=== PATIENT | male | born 1940 | race Caucasian/White ===

== ENCOUNTER → 2018-07-13 | Outpatient (CLI) | payer MEDICARE, BC ==
[~2018-07-13] MED LIST: ASPIRIN 81M81 MG/TA2 PO; COREG 3.123.125 MG/T PO; GLUCOPHAGE1000 MG PO; LIPITOR 40MG TA40 MG PO; MEGARED PO; PLAVIX 75MG TAB75 MG PO; PRINIVIL2.5 MG PO; TRENTAL 400MG400 MG PO; TRICOR 48MG48 MG PO
== END ==
LOC: COL.RAD 14:40
DX: K80.11 Calculus of gallbladder with chronic cholecystitis with obstruction (principal); K83.9 Disease of biliary tract, unspecified; K86.89 Other specified diseases of pancreas; I71.4 Abdominal aortic aneurysm, without rupture; E27.8 Other specified disorders of adrenal gland; N28.1 Cyst of kidney, acquired; I70.1 Atherosclerosis of renal artery; Z95.820 Peripheral vascular angioplasty status with implants and grafts; Z96.89 Presence of other specified functional implants
CPT/HCPCS: Q9967

== ENCOUNTER 2018-09-04 11:19 | Day surgery (SDC) | payer MEDICARE, BC ==
[~2018-09-04] VITALS: Ht 175.4 cm; Wt 83.3 kg
[2018-09-04] VITALS (310 sets, daily range): BP systolic 146–177; BP diastolic 69–94; PULSE 65–91; TEMP 97.9–98.8; O2SAT 91–100
[2018-09-04 11:47] LABS: HEMATOCRIT 37.7 % (42.0-52.0); HEMOGLOBIN 12.4 g/dl (13.5-18.0); MEAN CELL VOLUME 94 fl (80.0-100.0); MEAN CORPUSCULAR HEMOGLOBIN 31 pg (27.0-31.0); MEAN CORPUSCULAR HGB CONC 33 g/dl (33.0-37.0); MEAN PLATELET VOLUME 10.8 fl (7.4-10.4); PLATELET COUNT 145 K/mm3 (130-400); RED BLOOD COUNT 4.01 M/mm3 (4.20-5.60); REDCELL DISTRIBUTION WIDTH-CV 13.8 % (11.5-14.5)
[2018-09-04] MEDS ORDERED: TRENTAL 400MG400 MG PO ×2 (11:50→18:36)
[2018-09-04 11:52] LABS: PROTHROMBIN TIME 11.2 SECONDS (9.7-12.8)
[2018-09-04] MEDS ORDERED: NATURAL IRON65 MG PO ×2 (11:55→18:46)
[2018-09-04 12:02] LABS: CREATININE, serum 0.92 (0.66-1.25); POTASSIUM 4.3 mmol/L (3.4-5.0)
--- NOTE | 2018-09-04 14:02 | NUR ---
ALL MEDICATIONS GIVEN VORB WITH MD. SEE MERGE FOR ALL MEDICATION ADMIN TIMES. SEE MERGE FOR ALL RASS ASSESSMENTS DURING AND POST PROCEDURE.
--- NOTE | 2018-09-04 17:15 | NUR ---
Refer to previous cardiac cath documentation for vital signs at this time. Right hand is cool, normal in color, and capillary refill <3 seconds.
--- NOTE | 2018-09-04 17:30 | NUR ---
Refer to previous cardiac cath documentation for vital signs at this time. Right hand is cool, normal in color, with capillary refill <3 seconds.
--- NOTE | 2018-09-04 17:40 | NUR ---
Called Dr Rhodes regarding note left on h/p by his office nurse stating he needed to call pt's surgeon at after procedure for update. Pt is scheduled for OR 09/08/18. Dr Barry's number provided to Dr Rhodes.
--- NOTE | 2018-09-04 17:44 | NUR ---
Right radial pulse unable to palpate due to TR band in place post heart cath. Hand cool to touch, normal in color, capillary refill <3 seconds.
--- NOTE | 2018-09-04 17:45 | NUR ---
Refer to previous cardiac cath documentation for vital signs at this time. Right hand is cool, normal in color, and capillary refill <3 seconds.
--- NOTE | 2018-09-04 18:01 | NUR ---
Refer to previous cardiac cath check documentation for vital signs related to this time. Right hand is cool, normal in color, and capillary refill <3 seconds.
--- NOTE | 2018-09-04 18:26 | NUR ---
Scant drainage noted to gauze dressing on right femoral site. Drainage outlined with tyrellie at this time.
--- NOTE | 2018-09-04 18:28 | NUR ---
Refer to previous documentation on cardiac cath checks for vital signs at this time. Right hand is cool, normal in color, and capillary refill <3 seconds.
[2018-09-04] MEDS ORDERED: PRINIVIL2.5 MG PO (18:32)
[2018-09-04] MEDS ORDERED: COREG 3.123.125 MG/T PO (18:33)
[2018-09-04] MEDS ORDERED: GLUCOPHAGE1000 MG PO (18:34)
[2018-09-04] MEDS ORDERED: LIPITOR 40MG TA40 MG PO (18:37)
[2018-09-04] MEDS ORDERED: PLAVIX 75MG TAB75 MG PO (18:39)
[2018-09-04] MEDS ORDERED: ASPIRIN 81M81 MG/TA2 PO (18:40)
[2018-09-04] MEDS ORDERED: KRILL OIL 3001 EACH PO (18:43)
--- NOTE | 2018-09-04 18:52 | NUR ---
Scant drainage on right femoral dressing has increased since the last check. New area of bleeding outlined on dressing and 10 lb sandbag applied at this time.
--- NOTE | 2018-09-04 18:54 | NUR ---
Refer to previous cardiac cath check documentation for vital signs at this time. Right hand is cool, normal in color, and capillary refill <3 seconds.
--- NOTE | 2018-09-04 19:28 | NUR ---
TR Band deflated by 3 ml with no complications.
--- NOTE | 2018-09-04 19:31 | NUR ---
Bedside shift report given to LINDSAY Knight. Patient awake, alert, and remains supine from heart catheterization procedure. Patient has no complaints or concerns at this time. Patient pulled up in bed, but remains supine at this time. Patient's and daughter are at bedside during this time. Both catheter access sites (R femoral, R radial) assessed. Vital signs stable. Bed placed in reverse trendelenburg, lowered to the lowest position, side rails up x3, call light placed within reached.
--- NOTE | 2018-09-04 20:00 | NUR ---
Shift assessment complete at this time. Plan of care reviewed at bedside with patient et family. Additional time taken to address any other needs or concerns. Vitals stable at this time. Denies pain or any other discomfort. R radial cath site with TR band in place; clean, dry, et intact with no drainage or hematoma. Pulses present and strong bilaterally. R femoral cath site with oozing drainage. Sandbag in place. No hematoma present. Will continue to monitor.
--- NOTE | 2018-09-04 22:45 | NUR ---
R radial site noted to have increased firmness superiorly to puncture site. TR band reinflated with 5 ml of air. Will notify physician.
--- NOTE | 2018-09-04 23:45 | NUR ---
R femoral cath site with no new drainge; soft with no hematoma. Dressing intact. R radial site with no expansion to hematoma. Pulse present and strong bilaterally. TR band remains in place per order.
[2018-09-05] VITALS (174 sets, daily range): BP systolic 145–162; BP diastolic 84–93; PULSE 78–85; TEMP 97.9–98.1; O2SAT 95–100
--- NOTE | 2018-09-05 | NUR ---
Pt resting comfortably in bed. Denies pain or any other discomfort. Vitals stable at this time. R femoral cath site with no new drainage, soft with no hematoma. Sandbag still in place over femoral site. R radial cath site with TR band in place, no drainage or expansion of hematoma. Pulses present and strong bilaterally. Call light in place. Bed alarm on. Bed in low position with three rails raised. Will continue to monitor.
--- NOTE | 2018-09-05 04:05 | NUR ---
Pt sleeping comfortably in bed. Denies pain or any other discomfort. Vitals stable at this time. R radial site with no expansion of hematoma. Pulses present bilaterally. TR band in place per order. R femoral site with no new drainage; no hematoma present. Call light within reach, bed in low and locked position. Will continue to monitor.
--- NOTE | 2018-09-05 07:28 | NUR ---
Bedside report given to LINDSAY Green.
--- NOTE | 2018-09-05 07:30 | NUR ---
Report received from LINDSAY Knight.
--- NOTE | 2018-09-05 08:00 | NUR ---
Assessment completed. Pt awake, in bed talking with at bedside. Denies any pain. VSS. Right wrist with TR band inflated with air. TR band deflated 3cc of air. Right radial pulse strong. Bruising noted above incision site, area soft. Right femoral dressing with old drainage, area soft. Dressing changed with gauze and tegaderm. Discussed plan of care r/t possible discharge today. Pt verbalized understanding. Call light in reach.
[2018-09-05] MEDS ORDERED: COREG 6.256.25 MG/TA PO (08:08)
[2018-09-05] MEDS ORDERED: PRINIVIL5 MG PO (08:08)
--- NOTE | 2018-09-05 08:30 | NUR ---
All air deflated from TR band on right wrist. Area soft, no bleeding noted from incision site. No changes with bruising above insertion site. Right femoral dressing c/d/i, area soft.
--- NOTE | 2018-09-05 10:20 | NUR ---
Discharged paperwork given to pt and pt's . Discussed discharge instructions and med list to pt adn pt's . answered all questions to their satisfaction. Left AC PIV dc'd. catheter intact.
--- NOTE | 2018-09-05 10:30 | NUR ---
Pt discharged from ICU. Pt left unit via wheelchair with nurse and to private vehicle driven by spouse.
== END 2018-09-05 10:30 | disposition home or self-care (01) ==
LOC: COL.CAR 11:19 → ICU 16:50 → COL.CAR 09-05 10:30
PROVIDERS: Internal Medicine Cardiovascular Disease
DX: I25.10 Atherosclerotic heart disease of native coronary artery without angina pectoris (principal); R94.39 Abnormal result of other cardiovascular function study; I73.9 Peripheral vascular disease, unspecified; Z79.02 Long term (current) use of antithrombotics/antiplatelets; Z79.84 Long term (current) use of oral hypoglycemic drugs; Z95.1 Presence of aortocoronary bypass graft; I12.9 Hypertensive chronic kidney disease with stage 1 through stage 4 chronic kidney disease, or unspecified chronic kidney disease; E11.22 Type 2 diabetes mellitus with diabetic chronic kidney disease; N18.3 Chronic kidney disease, stage 3 (moderate); E78.5 Hyperlipidemia, unspecified; J44.9 Chronic obstructive pulmonary disease, unspecified; Z86.718 Personal history of other venous thrombosis and embolism
CPT/HCPCS: OP; J0360; J1644; J2250; J3010; Q9967

== ENCOUNTER 2018-11-17 09:37 | Emergency (ER) | payer MEDICARE, BC ==
[~2018-11-17 09:37] MED LIST changes: +COREG 6.256.25 MG/TA PO; +KRILL OIL 3001 EACH PO; +NATURAL IRON65 MG PO; +PRINIVIL5 MG PO
[2018-11-17 09:56] VITALS: TEMP 96.1
[2018-11-17 10:43] LABS: BASO % 0.8 % (0.0-2.0); EOS # 0.1 (0.0-0.7); EOS % 1.6 % (0-4.0); GRAN # 2.9 (1.4-6.5); GRAN % 76.6 % (42.2-75.2); HEMATOCRIT 32.1 % (42.0-52.0); HEMOGLOBIN 10.7 g/dl (13.5-18.0); LYMPH # 0.6 (1.2-3.4); LYMPH % 14.7 % (20.0-51.0); MEAN CELL VOLUME 94 fl (80.0-100.0); MEAN CORPUSCULAR HEMOGLOBIN 31 pg (27.0-31.0); MEAN CORPUSCULAR HGB CONC 33 g/dl (33.0-37.0); MEAN PLATELET VOLUME 11.2 fl (7.4-10.4); MONO # 0.2 (0.1-0.6); PLATELET COUNT 139 K/mm3 (130-400); RED BLOOD COUNT 3.43 M/mm3 (4.20-5.60); REDCELL DISTRIBUTION WIDTH-CV 13.7 % (11.5-14.5)
[2018-11-17 10:48] LABS: PROTHROMBIN TIME 11.4 SECONDS (9.7-12.8)
[2018-11-17 10:54] LABS: ALBUMIN 3.2 gm/dL (3.5-5.0); BILIRUBIN,TOTAL 0.6 mg/dL (0.0-1.0); CALCIUM 8.9 mg/dL (8.4-10.2); CREATININE, serum 0.8 (0.66-1.25); MAGNESIUM 1.8 mg/dL (1.6-2.3); POTASSIUM 5.1 mmol/L (3.4-5.0)
[2018-11-17] MEDS ORDERED: LANTUS SOLOS100 U/ML SQ (12:56)
[2018-11-17 13:10] VITALS: BP 136/84; PULSE 76
== END 2018-11-17 13:10 | disposition home or self-care (01) ==
LOC: COL.ER 09:37
PROVIDERS: Emergency Medicine
DX: R73.9 Hyperglycemia, unspecified (principal); R04.0 Epistaxis; C25.9 Malignant neoplasm of pancreas, unspecified; Z79.84 Long term (current) use of oral hypoglycemic drugs; Z79.82 Long term (current) use of aspirin; Z79.02 Long term (current) use of antithrombotics/antiplatelets
CPT/HCPCS: J1815; J7030

== ENCOUNTER 2018-11-18 23:15 | Emergency (ER) | payer MEDICARE, BC ==
[~2018-11-18] VITALS: Ht 180.3 cm; Wt 73.6 kg
[~2018-11-18 23:15] MED LIST changes: +LANTUS SOLOS100 U/ML SQ
[2018-11-18 23:22] VITALS: BP 129/62; PULSE 101; TEMP 97.5
[2018-11-18 23:49] LABS: HEMOGLOBIN 10.5 g/dl (13.5-18.0)
[2018-11-18 23:50] LABS: HEMATOCRIT 32.1 % (42.0-52.0)
== END 2018-11-19 00:40 | disposition home or self-care (01) ==
LOC: COL.ER 23:15
PROVIDERS: Physician Assistant
DX: R04.0 Epistaxis (principal); E11.9 Type 2 diabetes mellitus without complications; Z79.02 Long term (current) use of antithrombotics/antiplatelets; Z79.4 Long term (current) use of insulin; Z79.82 Long term (current) use of aspirin

== ENCOUNTER 2019-01-10 22:44 | Inpatient (IN) | payer MEDICARE, BC ==
[~2019-01-10] VITALS: Ht 175.3 cm; Wt 83.0 kg
[2019-01-10 23:24] LABS: HEMOGLOBIN 10.1 g/dl (13.5-18.0); MEAN CELL VOLUME 98 fl (80.0-100.0); MEAN CORPUSCULAR HEMOGLOBIN 31 pg (27.0-31.0); MEAN CORPUSCULAR HGB CONC 32 g/dl (33.0-37.0); MEAN PLATELET VOLUME 10.8 fl (7.4-10.4); PLATELET COUNT 80 K/mm3 (130-400); RED BLOOD COUNT 3.22 M/mm3 (4.20-5.60); REDCELL DISTRIBUTION WIDTH-CV 18.3 % (11.5-14.5)
[2019-01-10 23:27] LABS: HEMATOCRIT 31.7 % (42.0-52.0)
[2019-01-10 23:34] LABS: INR 1.1 (0.8-3.0); PROTHROMBIN TIME 12.5 SECONDS (9.7-12.8)
[2019-01-10 23:36] LABS: PARTIAL THROMBOPLASTIN TIME 27.1 SECONDS (26.0-37.0)
[2019-01-10 23:37] LABS: ALBUMIN 3.7 gm/dL (3.5-5.0); BILIRUBIN,TOTAL 0.8 mg/dL (0.0-1.0); C-REACTIVE PROTEIN 2.1 mg/dL (0.0-0.9); CALCIUM 8.9 mg/dL (8.4-10.2); CREATININE, serum 0.82 (0.66-1.25); POTASSIUM 3.8 mmol/L (3.4-5.0); TOTAL PROTEIN 6.6 gm/dL (6.4-8.2)
[2019-01-11] VITALS (1256 sets, daily range): BP systolic 112–147; BP diastolic 63–78; PULSE 63–195; TEMP 97.9–99.6; O2SAT 80–100
[2019-01-11 00:04] LABS: TROPONIN-I 0.015 ng/mL (0.000-0.035)
[2019-01-11 00:27] LABS: ANISOCYTOSIS 2+; BAND 27 % (0-10); LYMPHOCYTE 7 % (20.0-51.0); NEUTROPHILS 63 % (42.0-75.2); PLATELET ESTIMATE DECREASED (NORMAL); ROULEAUX 1+
[2019-01-11 00:28] LABS: POIKILOCYTOSIS 1+
[2019-01-11] MEDS ORDERED: LEVEMIR100 U/ML SQ (00:55)
[2019-01-11] MEDS ORDERED: NOVOLIN N100 U/ML (00:56)
--- NOTE | 2019-01-11 02:01 | NUR ---
Admission assessment complete. Patient in bed, awake. at bedside. Denies pain. Temp 99.6, down from admission temp. BG 306, will obtain sliding scale insulin orders. Denies further needs at this time. Will continue to monitor.
[2019-01-11] MEDS ORDERED: NEURONTIN300 MG/CAP PO (02:35)
--- NOTE | 2019-01-11 02:39 | NUR ---
Most recent troponin 0.0178 (previous 0.015). Notified Zaida, GENERAL FREIGHT AGENT. Also notified Zaida of BG 306 and temp 99.6. Continue IVF at 150ml/hr and she will see patient soon. Updated patient and . Will continue to monitor.
--- NOTE | 2019-01-11 04:50 | NUR ---
Patient in bed, sleeping. Awakens easily. Able to provide sample for U/A. KIMBERLEE Cerda aware and specimen taken to lab. Patient denies pain. Denies further needs at this time. Will continue to monitor.
[2019-01-11 05:47] LABS: COLLECTION METHOD CLEAN CATCH
[2019-01-11 06:03] LABS: PH 5 (5-8); SQUAMOUS EPITHELIAL None Seen /hpf; URINE APPEARANCE Clear; URINE BACTERIA None Seen /hpf; URINE BILIRUBIN Negative (NEGATIVE); URINE BLOOD 2+ (NEGATIVE); URINE COLOR Yellow; URINE GLUCOSE 3+ (NEGATIVE); URINE KETONE Negative (NEGATIVE); URINE LEUKOCYTE ESTERASE Negative (NEGATIVE); URINE NITRATE Negative (NEGATIVE); URINE PROTEIN(semi-quant) Negative (NEGATIVE); URINE RBC 0-2 /hpf; URINE UROBILINOGEN Negative (NEGATIVE)
[2019-01-11 06:17] LABS: MEAN CELL VOLUME 100 fl (80.0-100.0); MEAN CORPUSCULAR HGB CONC 32 g/dl (33.0-37.0); PLATELET COUNT 73 K/mm3 (130-400); RED BLOOD COUNT 2.55 M/mm3 (4.20-5.60); REDCELL DISTRIBUTION WIDTH-CV 18.5 % (11.5-14.5)
[2019-01-11 06:18] LABS: HEMATOCRIT 25.5 % (42.0-52.0); HEMOGLOBIN 8.2 g/dl (13.5-18.0); MEAN CORPUSCULAR HEMOGLOBIN 32 pg (27.0-31.0)
[2019-01-11 06:37] LABS: ALBUMIN 2.8 gm/dL (3.5-5.0); BILIRUBIN,TOTAL 0.3 mg/dL (0.0-1.0); CALCIUM 8.1 mg/dL (8.4-10.2); CREATININE, serum 0.81 (0.66-1.25); TOTAL PROTEIN 5.2 gm/dL (6.4-8.2)
--- NOTE | 2019-01-11 06:38 | NUR ---
Cardiology consult called to Dr. Quiros.
--- NOTE | 2019-01-11 07:00 | NUR ---
BEDSIDE REPORT RECEIVED FROM LINDSAY GARCIA.
[2019-01-11 07:18] LABS: ANISOCYTOSIS 2+; LYMPHOCYTE 7 % (20.0-51.0); NEUTROPHILS 87 % (42.0-75.2); PLATELET ESTIMATE DECREASED (NORMAL)
[2019-01-11 07:19] LABS: HYPOCHROMIA 1+
[2019-01-11 07:35] LABS: TROPONIN-I 6 HR POST INITIAL 1.65 ng/mL (0.000-0.034)
--- NOTE | 2019-01-11 07:45 | NUR ---
RECEIVED REPORT FROM LINDSAY MORRIS.
--- NOTE | 2019-01-11 12:19 | NUR ---
Initial visit; Patient and his thanked Traffic Chief for looking in on [facility] and letting them know that Holy Communion is offered on the floor by [facility] and by request in the ICU.
--- NOTE | 2019-01-11 15:13 | NUR ---
BLOOD CULTURE SPECIMEN COLLECTED FROM IMPLANTED PORT IN RIGHT CHEST. PORT-A-CATH ACCESSED AND THEN DEACCESSED PER DR. BOND VERBAL ORDER. PATIENT TOLERATED WELL.
--- NOTE | 2019-01-11 15:42 | NUR ---
SW met with patient and to discuss discharge planning. Patient lives independently at home wiht his . Patient's PCP is Dr Fleming but patient is also seen by Dr Short, as he is currently getting chemo therapy. Patient reports he has not had many side effects to the chemo. Patient is independent with all ADLs. Patient does not use any DME but has access to a walker and wheelchair if needed. Patient does not use any home health services. [facility] reports that patient does have [facility] in place and they've provided a copy for the chart. SW will continue to follow. No discharge needs at this time.
--- NOTE | 2019-01-11 19:45 | NUR ---
BEDSIDE REPORT GIVEN TO LINDSAY CASTILLO AND LINDSAY KATHLEEN. PATIENT LYING IN BED WITH NO COMPLAINTS. PLAN OF CARE REVIEWED. CARE TURNED OVER AT THIS TIME.
[2019-01-12] VITALS (714 sets, daily range): BP systolic 115–166; BP diastolic 52–85; PULSE 63–78; TEMP 97.8–98.7; O2SAT 77–100
[2019-01-12 05:23] LABS: BASO % 0.4 % (0.0-2.0); EOS # 0.1 (0.0-0.7); EOS % 2.6 % (0-4.0); GRAN # 3.8 (1.4-6.5); GRAN % 76.2 % (42.2-75.2); LYMPH # 0.6 (1.2-3.4); LYMPH % 11.6 % (20.0-51.0); MEAN CELL VOLUME 102 fl (80.0-100.0); MEAN CORPUSCULAR HGB CONC 31 g/dl (33.0-37.0); MEAN PLATELET VOLUME 10.9 fl (7.4-10.4); MONO # 0.4 (0.1-0.6); MONO % 8.8 % (1.7-9.3); PLATELET COUNT 61 K/mm3 (130-400); REDCELL DISTRIBUTION WIDTH-CV 18.5 % (11.5-14.5)
[2019-01-12 05:28] LABS: HEMATOCRIT 26.4 % (42.0-52.0); HEMOGLOBIN 8.2 g/dl (13.5-18.0); MEAN CORPUSCULAR HEMOGLOBIN 32 pg (27.0-31.0)
[2019-01-12 05:39] LABS: ALBUMIN 2.9 gm/dL (3.5-5.0); BILIRUBIN,TOTAL 0.4 mg/dL (0.0-1.0); CALCIUM 8.2 mg/dL (8.4-10.2); CREATININE, serum 0.74 (0.66-1.25); POTASSIUM 4.2 mmol/L (3.4-5.0); TOTAL PROTEIN 5.4 gm/dL (6.4-8.2)
[2019-01-12 05:54] LABS: TROPONIN-I 1.42 ng/mL (0.000-0.035)
--- NOTE | 2019-01-12 05:55 | NUR ---
TROPONIN TRENDING DOWN, PHYSICIAN NOT NOTIFIED OF MORNING RESULT.
--- NOTE | 2019-01-12 07:56 | NUR ---
GAVE BEDSIDE REPORT TO LINDSAY KERNS.
--- NOTE | 2019-01-12 19:05 | NUR ---
RECEIVED REPORT FROM LINDSAY KERNS.
[2019-01-13] VITALS (155 sets, daily range): BP systolic 153–175; BP diastolic 78–88; PULSE 75–81; TEMP 97.6–98.9; O2SAT 97–99
--- NOTE | 2019-01-13 02:00 | NUR ---
Patient wandering in hallway looking for bathroom. Patient was redirected to room and assisted to the toilet and then back to bed. Patient states he felt disoriented upon awakening. Vital signs continue to be within normal limits. Denies any pain or discomfort.
[2019-01-13 05:20] LABS: BASO % 0.3 % (0.0-2.0); EOS # 0.2 (0.0-0.7); EOS % 2.4 % (0-4.0); GRAN # 5.1 (1.4-6.5); GRAN % 80.2 % (42.2-75.2); HEMATOCRIT 28.7 % (42.0-52.0); HEMOGLOBIN 8.8 g/dl (13.5-18.0); LYMPH # 0.7 (1.2-3.4); LYMPH % 10.5 % (20.0-51.0); MEAN CELL VOLUME 101 fl (80.0-100.0); MEAN CORPUSCULAR HEMOGLOBIN 31 pg (27.0-31.0); MEAN CORPUSCULAR HGB CONC 31 g/dl (33.0-37.0); MEAN PLATELET VOLUME 11.8 fl (7.4-10.4); MONO # 0.4 (0.1-0.6); PLATELET COUNT 77 K/mm3 (130-400); RED BLOOD COUNT 2.83 M/mm3 (4.20-5.60); REDCELL DISTRIBUTION WIDTH-CV 17.8 % (11.5-14.5)
[2019-01-13 05:30] LABS: ALBUMIN 3.1 gm/dL (3.5-5.0); BILIRUBIN,TOTAL 0.4 mg/dL (0.0-1.0); CALCIUM 8.4 mg/dL (8.4-10.2); CREATININE, serum 0.72 (0.66-1.25); MAGNESIUM 1.9 mg/dL (1.6-2.3); POTASSIUM 3.7 mmol/L (3.4-5.0); TOTAL PROTEIN 5.8 gm/dL (6.4-8.2)
--- NOTE | 2019-01-13 07:59 | NUR ---
GAVE REPORT TO LINDSAY KERNS.
[2019-01-13] MEDS ORDERED: OMNICEF 300MG300 MG PO (11:41)
--- NOTE | 2019-01-13 13:01 | NUR ---
Patient will discharge home today 01/13 with his . No discharge needs.
--- NOTE | 2019-01-13 13:32 | NUR ---
Discharge instructions discussed with pt and . All questions answered. Iv and tele dc'd. Pt's has all paperwork. Pt wheeled out to private car for discharge.
== END 2019-01-13 13:30 | disposition home or self-care (01) | DRG 872 ==
LOC: COL.ER 22:44 → ICU 01-11 00:38
PROVIDERS: Emergency Medicine; Hospitalist; Nurse Practitioner Family; ADMIT Student in an Organized Health Care Education/Training Program
DX: A41.9 Sepsis, unspecified organism (principal); C25.9 Malignant neoplasm of pancreas, unspecified; C78.7 Secondary malignant neoplasm of liver and intrahepatic bile duct; E87.2 Acidosis; C79.72 Secondary malignant neoplasm of left adrenal gland; C79.71 Secondary malignant neoplasm of right adrenal gland; I24.8 Other forms of acute ischemic heart disease; I10 Essential (primary) hypertension; E78.5 Hyperlipidemia, unspecified; E83.42 Hypomagnesemia; I25.10 Atherosclerotic heart disease of native coronary artery without angina pectoris; D69.6 Thrombocytopenia, unspecified; R74.0 Nonspecific elevation of levels of transaminase and lactic acid dehydrogenase [LDH]; I71.4 Abdominal aortic aneurysm, without rupture; E11.51 Type 2 diabetes mellitus with diabetic peripheral angiopathy without gangrene; R00.0 Tachycardia, unspecified; Z79.4 Long term (current) use of insulin; Z79.82 Long term (current) use of aspirin; Z95.1 Presence of aortocoronary bypass graft; Z95.820 Peripheral vascular angioplasty status with implants and grafts; Z87.891 Personal history of nicotine dependence
CPT/HCPCS: 99222-AI; 99232-AI; 99239; A4216; J0692; J1815; J3475; J7030; Q9967

== ENCOUNTER 2019-04-21 07:30 | Outpatient (RCR) | payer MEDICARE, BC ==
[2019-04-21] VITALS (9 sets, daily range): BP systolic 114–148; BP diastolic 57–70; PULSE 60–78; TEMP 97–98.1
[~2019-04-21 07:30] MED LIST changes: +LEVEMIR100 U/ML SQ; +NEURONTIN300 MG/CAP PO; +NOVOLIN N100 U/ML SQ; +OMNICEF 300MG300 MG PO
[2019-04-21] MEDS ORDERED: COREG 6.256.25 MG/TA PO (08:21)
[2019-04-21] MEDS ORDERED: PRINIVIL10 MG PO (08:25)
[2019-04-21] MEDS ORDERED: NORVASC2.5 MG PO (08:27)
== END 2019-04-21 13:39 | disposition home or self-care (01) ==
LOC: EUO 07:30
DX: C24.1 Malignant neoplasm of ampulla of Vater (principal)
CPT/HCPCS: J1644; J7050; P9016

== ENCOUNTER 2019-05-11 09:57 | Outpatient (CLI) | payer MEDICARE, BC ==
[~2019-05-11] VITALS: Ht 175.3 cm; Wt 68.0 kg
[~2019-05-11 09:57] MED LIST changes: +NORVASC2.5 MG PO; +PRINIVIL10 MG PO
[2019-05-11 10:30] VITALS: BP 100/47; PULSE 64; TEMP 97.5
[2019-05-11] MEDS ORDERED: MAG-OX 400400 MG/TAB PO (10:43)
[2019-05-11] MEDS ORDERED: K-TAB20 PO (10:43)
[2019-05-11] MEDS ORDERED: NORCO 325 MG-51 TAB PO (10:44)
[2019-05-11] MEDS ORDERED: ZOFRAN8 MG PO (10:44)
[2019-05-11 12:43] VITALS: BP 116/55; PULSE 54
--- NOTE | 2019-05-11 12:45 | NUR ---
Pt christiano IVF and mag well. Pt discharged per w/c by nurse with .
== END 2019-05-11 14:35 | disposition home or self-care (01) ==
LOC: EUO 09:57
DX: C24.1 Malignant neoplasm of ampulla of Vater (principal)
CPT/HCPCS: J1644; J3475; J7030

== ENCOUNTER 2019-05-14 12:09 | Inpatient (IN) | payer MEDICARE, BC ==
[~2019-05-14] VITALS: Ht 175.3 cm; Wt 68.2 kg
[~2019-05-14 12:09] MED LIST changes: +K-TAB20 PO; +MAG-OX 400400 MG/TAB PO; +NORCO 325 MG-51 TAB PO; +ZOFRAN8 MG PO
[2019-05-14 13:34] LABS: BASO % 0.2 % (0.0-2.0); EOS % 0.2 % (0-4.0); GRAN % 81.4 % (42.2-75.2); LYMPH # 0.7 (1.2-3.4); MEAN CELL VOLUME 98 fl (80.0-100.0); MEAN CORPUSCULAR HGB CONC 33 g/dl (33.0-37.0); MEAN PLATELET VOLUME 11.8 fl (7.4-10.4); MONO # 0.4 (0.1-0.6); MONO % 6.6 % (1.7-9.3); PLATELET COUNT 81 K/mm3 (130-400); REDCELL DISTRIBUTION WIDTH-CV 18.2 % (11.5-14.5)
[2019-05-14 13:44] LABS: HEMATOCRIT 15.6 % (42.0-52.0); HEMOGLOBIN 5.1 g/dl (13.5-18.0); MEAN CORPUSCULAR HEMOGLOBIN 32 pg (27.0-31.0)
[2019-05-14 13:45] LABS: ALBUMIN 2.8 gm/dL (3.5-5.0); BILIRUBIN,TOTAL 0.4 mg/dL (0.0-1.0); CALCIUM 7.8 mg/dL (8.4-10.2); CREATININE, serum 1.05 (0.66-1.25); POTASSIUM 3.1 mmol/L (3.4-5.0); TOTAL PROTEIN 5.1 gm/dL (6.4-8.2)
[2019-05-14 16:40] LABS: INR 1.2 (0.8-3.0); PROTHROMBIN TIME 14.3 SECONDS (9.7-12.8)
--- NOTE | 2019-05-14 19:10 | NUR ---
Report recieved from Shama MONTOYA. Assessment complete. Pt resting in bed, awake, a&o, cooperative c cares. Pt c/o chronic pain at this time; PRN pain medical research tech per pt req. Pt denies any other c/o. Portacath accessed to L chest, patent c good blood return. Tele in place. POC reviewed including but not limited to PRBC transfusion. Pt also oriented to room et unit policies. Questions invited et answered, pt verbalizes understanding. Pt denies further needs at this time. Call light in reach, will continue c admit process.
[2019-05-14 21:00] VITALS: BP 117/56; BP 123/54; PULSE 71; PULSE 77; TEMP 98.3
--- NOTE | 2019-05-14 21:00 | NUR ---
Second unit PRBC began at 2044. Reviewed s/s transfusion reaction c pt, pt verbalizes understanding. This nurse at bedside for first 15 min. Pt stable, no s/s reaction. Denies further needs at this time. Call light in reach, family at bedside. Will continue to monitor.
[2019-05-14 21:15] VITALS: BP 132/57; PULSE 77
[2019-05-14 21:30] VITALS: BP 130/60; PULSE 80; TEMP 98.4
[2019-05-14 22:00] VITALS: BP 129/61; PULSE 82
[2019-05-14 22:30] VITALS: BP 133/61; PULSE 82
[2019-05-14 23:08] VITALS: BP 120/58; PULSE 82; TEMP 98.8
[2019-05-15] VITALS (12 sets, daily range): BP systolic 122–149; BP diastolic 48–74; PULSE 65–82; TEMP 98.1–99.1
[2019-05-15 00:39] LABS: HEMATOCRIT 20.3 % (42.0-52.0); HEMOGLOBIN 6.7 g/dl (13.5-18.0)
--- NOTE | 2019-05-15 03:00 | NUR ---
Third unit PRBC's started at this time. Reviewed s/s reaction c pt. Questions invited et answered. Will remain at bedside for first 15 min.
[2019-05-15 06:52] LABS: BASO % 0.2 % (0.0-2.0); EOS % 0.4 % (0-4.0); GRAN # 4.1 (1.4-6.5); GRAN % 79.6 % (42.2-75.2); LYMPH # 0.7 (1.2-3.4); LYMPH % 12.8 % (20.0-51.0); MEAN CORPUSCULAR HGB CONC 34 g/dl (33.0-37.0); MEAN PLATELET VOLUME 11.9 fl (7.4-10.4); MONO # 0.3 (0.1-0.6); MONO % 6.4 % (1.7-9.3); PLATELET COUNT 58 K/mm3 (130-400); RED BLOOD COUNT 2.53 M/mm3 (4.20-5.60); REDCELL DISTRIBUTION WIDTH-CV 17.5 % (11.5-14.5)
[2019-05-15 06:56] LABS: HEMATOCRIT 23.6 % (42.0-52.0); HEMOGLOBIN 7.9 g/dl (13.5-18.0); MEAN CELL VOLUME 93 fl (80.0-100.0); MEAN CORPUSCULAR HEMOGLOBIN 31 pg (27.0-31.0)
[2019-05-15 07:01] LABS: ALBUMIN 2.6 gm/dL (3.5-5.0); BILIRUBIN,TOTAL 0.9 mg/dL (0.0-1.0); CALCIUM 7.6 mg/dL (8.4-10.2); CREATININE, serum 0.86 (0.66-1.25); MAGNESIUM 1.7 mg/dL (1.6-2.3); POTASSIUM 3.6 mmol/L (3.4-5.0)
--- NOTE | 2019-05-15 09:52 | NUR ---
Pt assessment complete. Pt is sitting up in the chair upon entry, family at bedside. Pt is A/O x4. His breathing is even and unlabored on RA. Pt denies SOB. He denies N/V. Pt denies abdominal pain. No BM. Reports passing gas. Pt wanting to drink and possibly eat. POC discussed with patient who verbalizes understanding. IVF infusing without complications. Will continue to monitor.
--- NOTE | 2019-05-15 12:46 | NUR ---
Regional Sales Associate offered prayer and support with patient while family was in room.
--- NOTE | 2019-05-15 18:33 | NUR ---
Pt tolerated full liquid diet without complications. No BM's, N/V or abdominal pain. Pt reports passing gas. IVF infusing without complications. No needs at this time. Call light within reach
--- NOTE | 2019-05-15 20:20 | NUR ---
Shift assessment complete. Pt resting in bed, awake, a&o, cooperative c cares. Pt c/o chronic generalized pain rated "5/10" tonight; PRN pain medical fee clerk per pt req. Denies any other c/o. PAC accessed to R upper chest, patent c good blood return. Tele in place. Pt denies further needs. Call light in reach, will continue to monitor.
[2019-05-16 03:50] VITALS: BP 128/65; PULSE 85; TEMP 98.4
[2019-05-16 08:01] VITALS: BP 150/62; PULSE 87; TEMP 98.5
[2019-05-16 09:44] LABS: BASO % 0.2 % (0.0-2.0); EOS # 0.1 (0.0-0.7); EOS % 0.8 % (0-4.0); GRAN # 5.7 (1.4-6.5); GRAN % 88.8 % (42.2-75.2); HEMATOCRIT 23.1 % (42.0-52.0); HEMOGLOBIN 7.6 g/dl (13.5-18.0); LYMPH # 0.3 (1.2-3.4); MEAN CELL VOLUME 94 fl (80.0-100.0); MEAN CORPUSCULAR HEMOGLOBIN 31 pg (27.0-31.0); MEAN CORPUSCULAR HGB CONC 33 g/dl (33.0-37.0); MEAN PLATELET VOLUME 11.6 fl (7.4-10.4); MONO # 0.3 (0.1-0.6); MONO % 4.7 % (1.7-9.3); PLATELET COUNT 70 K/mm3 (130-400); RED BLOOD COUNT 2.46 M/mm3 (4.20-5.60); REDCELL DISTRIBUTION WIDTH-CV 18.1 % (11.5-14.5)
[2019-05-16 09:54] LABS: ALBUMIN 2.5 gm/dL (3.5-5.0); BILIRUBIN,TOTAL 0.5 mg/dL (0.0-1.0); CALCIUM 7.5 mg/dL (8.4-10.2); CREATININE, serum 0.72 (0.66-1.25); MAGNESIUM 1.4 mg/dL (1.6-2.3); POTASSIUM 3.5 mmol/L (3.4-5.0); TOTAL PROTEIN 4.8 gm/dL (6.4-8.2)
--- NOTE | 2019-05-16 11:00 | NUR ---
PT BLOOD SUGAR WAS 65 THIS AM, PT WAS CONFUSED BUT ALERT. PROIVDED APPLE JUICE AND THEN PT BREAKFAST WAS WNL AFTERWARDS.
[2019-05-16] MEDS ORDERED: PROTONIX 40MG T40 MG PO (12:17)
[2019-05-16] MEDS ORDERED: ZESTRIL 5MG5 MG PO (12:18)
[2019-05-16] MEDS ORDERED: ZOFRAN8 MG PO (12:31)
--- NOTE | 2019-05-16 13:30 | NUR ---
PT DISHCARGE EDUCATION WAS PROVIDED. TELE AND PORTACATH DISCONTINUED WITHOUT ISSUES. FAMILY AT BEDSIDE. THIS NURSE ECORTED PT TONIO.
== END 2019-05-16 13:45 | disposition home or self-care (01) | DRG 377 ==
LOC: COL.ER 12:09 → MEDICAL 15:00 → COL.ER 15:00 → MEDICAL 05-16 03:00
PROVIDERS: Emergency Medicine; Internal Medicine Gastroenterology; Nurse Practitioner Family; Student in an Organized Health Care Education/Training Program; ADMIT Internal Medicine
PROC: 0DJ08ZZ Inspection of Upper Intestinal Tract, Via Natural or Artificial Opening Endoscopic (ICD-10-PCS; principal; 2019-05-14 17:00)
DX: K92.0 Hematemesis (principal); K83.1 Obstruction of bile duct; C24.1 Malignant neoplasm of ampulla of Vater; C78.4 Secondary malignant neoplasm of small intestine; C78.7 Secondary malignant neoplasm of liver and intrahepatic bile duct; D50.0 Iron deficiency anemia secondary to blood loss (chronic); K83.9 Disease of biliary tract, unspecified; I95.9 Hypotension, unspecified; D69.6 Thrombocytopenia, unspecified; E87.6 Hypokalemia; I25.10 Atherosclerotic heart disease of native coronary artery without angina pectoris; Z95.1 Presence of aortocoronary bypass graft; I70.201 Unspecified atherosclerosis of native arteries of extremities, right leg; E78.5 Hyperlipidemia, unspecified; I71.4 Abdominal aortic aneurysm, without rupture; E11.51 Type 2 diabetes mellitus with diabetic peripheral angiopathy without gangrene; Z95.820 Peripheral vascular angioplasty status with implants and grafts; Z87.891 Personal history of nicotine dependence; Z79.4 Long term (current) use of insulin
CPT/HCPCS: 99223-AI; 99233-AI; 99239; C9113; J1815; J2704; J3480; J7030; P9016; Q9967